=== PATIENT | male | born 1975 | race Caucasian/White ===

== ENCOUNTER 2016-05-06 16:06 | Emergency (ER) | payer OTHER ==
[2016-05-06 16:17] VITALS: BP 137/90; PULSE 96; TEMP 98.3; BMI 25.8
[2016-05-06] MEDS ORDERED: KETOROLAC TROMETHAMINE 60 MG/2 ML VIAL IM ONE (17:25)
[2016-05-06] MEDS ORDERED: diazePAM 5 MG TABLET PO ONE (17:25)
[2016-05-06] MEDS ORDERED: diazePAM 5 MG TABLET ONE (17:28)
[2016-05-06] MEDS ORDERED: KETOROLAC TROMETHAMINE 60 MG/2 ML VIAL ONE (17:28)
--- NOTE | 2016-05-06 17:31 | PDOC ---
History of Present Illness - General Chief Complaint: Back Pain Stated Complaint: BACK PAIN Time Seen by Provider: 05/06/16 16:50 History Source: Patient - History of Present Illness Occurred: reports: yesterday Severity: reports: severe Pain Location: reports: back Past History - Past Medical History Allergies/Adverse Reactions: Allergies Allergy/AdvReac Type Severity Reaction Status Date / Time No Known Allergies Allergy Verified 05/06/16 16:15 Home Medications: Ambulatory Orders Cyclobenzaprine HCl [Flexeril -] 10 mg PO TID #9 tablet 05/06/16 Ibuprofen [Motrin -] 800 mg PO Q6H #30 tablet 05/06/16 Oxycodone HCl/Acetaminophen [Percocet 5-325 mg Tablet] 1 tab PO Q4H #12 tablet MDD 4 05/06/16 Other medical history: none - Psycho/Social/Smoking Cessation Hx Anxiety: No Suicidal Ideation: No Smoking History: Never smoked Have you smoked in the past 12 months: No Information on smoking cessation initiated: No Hx Alcohol Use: No Drug/Substance Use Hx: No Substance Use Type: None Review of Systems - Review of Systems Constitutional: No: Chills, Fever Respiratory: No: Shortness of Breath Cardiac (ROS): No: Palpitations Musculoskeletal: Yes: Back Pain Neurological: No: Numbness, Tingling, Weakness *Physical Exam - Vital Signs Last Vital Signs Temp Pulse Resp BP Pulse Ox 98.3 F 96 H 18 137/90 100 05/06/16 16:15 05/06/16 16:15 05/06/16 16:15 05/06/16 16:15 05/06/16 16:15 05/06/16 17:31 Pt sitting in wheelchair and grimacing in pain - Physical Exam General Appearance: Yes: Appropriately Dressed, Severe Distress HEENT: positive: Normal Voice Neck: positive: Supple Respiratory/Chest: positive: Lungs Clear, Normal Breath Sounds. negative: Respiratory Distress Cardiovascular: positive: Regular Rate, S1, S2, Other (pulses symmetric) Gastrointestinal/Abdominal: positive: Soft. negative: Tender Integumentary: positive: Dry, Warm Neurologic: positive: Fully Oriented, Alert, Normal Mood/Affect Medical Decision Making - Medical Decision Making 05/06/16 17:25 41-year-old male, denies any significant past medical history, here with severe back pain. Patient complaining of severe right upper back pain that started gradually last night and worsened today, constant since last night, unable to describe and 10/10 in intensity. States pain now radiating to chest. States he 's had similar pain in the past but not this severe and has never seeked medical care prior to today. No trauma. Denies chest pain, shortness of breath or palpitations. No risk factors for DVT/PE. Patient has not tried anything for pain. See exam Recurrent upper back pain ?MSK, unlikely dissection, has radiation to chest but doubt PE as no RFs and PERCs out Appears uncomfortable in ED but stable w/ no reproducible pain Chest/lungs clear -pain control and reassess 05/06/16 18:56 Pain significantly improved with meds as per patient stable for discharge with pain control and PMD follow-up 05/06/16 19:03 *DC/Admit/Observation/Transfer Diagnosis at time of Disposition: Back pain Qualifiers: Back pain location: thoracic back pain Chronicity: acute Back pain laterality: right Qualified Code(s): M54.6 - Pain in thoracic spine - Discharge Dispostion Disposition: HOME Condition at time of disposition: Improved - Prescriptions Prescriptions: Cyclobenzaprine HCl [Flexeril -] 10 mg PO TID #9 tablet Ibuprofen [Motrin -] 800 mg PO Q6H #30 tablet Oxycodone HCl/Acetaminophen [Percocet 5-325 mg Tablet] 1 tab PO Q4H #12 tablet MDD 4 - Patient Instructions Printed Discharge Instructions: DI for Back Spasm Additional Instructions: [place] motrin y flexeril para el dolor y si los medicamentos no ayudan, jocelin percocet. Seguimiento con cramer PMD para duy evaluacin posterior Print Language: ZAMBIAN - Post Discharge Activity Work/School Note: Back to Work
== END 2016-05-06 19:08 | disposition home or self-care (01) ==
LOC: JERFT 16:06
PROC: 3E0233Z Introduction of Anti-inflammatory into Muscle, Percutaneous Approach (ICD-10-PCS; principal; 2016-05-06)
DX: M54.6 Pain in thoracic spine (principal)
CPT/HCPCS: 96372; 99281-25

== ENCOUNTER 2016-06-29 00:08 | Emergency (ER) | payer OTHER ==
[2016-06-29] MEDS ORDERED: LIDOCAINE 1%/EPI 1:100000 (20 ML MULTI DOSE VIAL) INF ONE (00:27)
[2016-06-29] MEDS ORDERED: LIDOCAINE 1%/EPI 1:100000 (50 ML MULTI DOSE VIAL) ONE (00:29)
[2016-06-29 00:47] VITALS: BP 134/79; PULSE 96; TEMP 97.8; BMI 25.5
--- NOTE | 2016-06-29 00:54 | PDOC ---
[id number]: No Limitations - History of Present Illness Initial Comments: 06/29/16 01:07 The patient is a 41 year old male, with no significant past medical history, who presents to the emergency department accompanied by son, with a pumping arterial bleed to the left forehead s/p falling on the staircase and hitting his head earlier this evening. The patient was actively bleeding in the left forehead upon arrival to the ED. As per son, the patient was at work when he began to consume ETOH. As the patient was arriving home and walking up the staircase, he reports falling and hitting his head. The patient denies any LOC, change in vision, dizziness, or headache. The son reports his father has a history of ETOH use. Patient's neighbors, present at bedside, report occasionally seeing the patient intoxicated. The patient denies any nausea, vomiting, diarrhea, constipation, or changes in urination patterns. The patient denies any chest pain, shortness of breath, diaphoresis, or palpitations. Allergies: None reported. Past Surgical History: None reported. Social History: ETOH abuse. Non-smoker. Denies drug use. <Gabe Santamaria - Last Filed: 06/29/16 01:11> <Ynes Jaramillo - Last Filed: 06/29/16 05:49> - General Stated Complaint: INJURY Past History <Gabe Santamaria - Last Filed: 06/29/16 01:11> - Psycho/Social/Smoking Cessation Hx Anxiety: No Suicidal Ideation: No Smoking History: Never smoked Have you smoked in the past 12 months: No Information on smoking cessation initiated: No Hx Alcohol Use: No Drug/Substance Use Hx: No Substance Use Type: None <Ynes Jaramillo - Last Filed: 06/29/16 05:49> - Past Medical History Allergies/Adverse Reactions: Allergies Allergy/AdvReac Type Severity Reaction Status Date / Time No Known Allergies Allergy Verified 05/06/16 16:15 Home Medications: Ambulatory Orders Cyclobenzaprine HCl [Flexeril -] 10 mg PO TID #9 tablet 05/06/16 Ibuprofen [Motrin -] 800 mg PO Q6H #30 tablet 05/06/16 Oxycodone HCl/Acetaminophen [Percocet 5-325 mg Tablet] 1 tab PO Q4H #12 tablet MDD 4 05/06/16 Cephalexin Monohydrate [Keflex -] 500 mg PO BID #14 capsule 06/29/16 Review of Systems - Review of Systems Able to Perform ROS?: Yes Comments:: 06/29/16 01:09 GENERAL/CONSTITUTIONAL: No fever or chills. No weakness. HEAD, EYES, EARS, NOSE AND THROAT: +Actively bleeding laceration to the left forehead, +laceration to the left cheek. No change in vision. No ear pain or discharge. No sore throat. CARDIOVASCULAR: No chest pain or shortness of breath. RESPIRATORY: No cough, wheezing, or hemoptysis. GASTROINTESTINAL: No nausea, vomiting, diarrhea or constipation. GENITOURINARY: No dysuria, frequency, or change in urination. MUSCULOSKELETAL: No joint or muscle swelling or pain. No neck or back pain. SKIN: No rash NEUROLOGIC: No headache, vertigo, loss of consciousness, or change in strength/ sensation. ENDOCRINE: No increased thirst. No abnormal weight change. HEMATOLOGIC/LYMPHATIC: No anemia, easy bleeding, or history of blood clots. ALLERGIC/IMMUNOLOGIC: No hives or skin allergy. <Gabe Santamaria - Last Filed: 06/29/16 01:11> *Physical Exam - Vital Signs Last Vital Signs Temp Pulse Resp BP Pulse Ox 97.8 F 96 H 14 134/79 97 06/29/16 00:45 06/29/16 00:45 06/29/16 00:45 06/29/16 00:45 06/29/16 00:45 - Physical Exam Comments: 06/29/16 01:09 GENERAL: Awake, alert, and fully oriented, in no acute distress HEAD: 2 cm pumping arterial bleed to the left forehead. Shallow 1 cm facial laceration to the left anterior cheek. EYES: PERRLA, EOMI, sclera anicteric, conjunctiva clear ENT: Auricles normal inspection, hearing grossly normal, nares patent, oropharynx clear without exudates. Moist mucosa NECK: Normal ROM, supple, no lymphadenopathy, JVD, or masses LUNGS: Breath sounds equal, clear to auscultation bilaterally. No wheezes, and no crackles HEART: Regular rate and rhythm, normal S1 and S2, no murmurs, rubs or gallops ABDOMEN: Soft, nontender, normoactive bowel sounds. No guarding, no rebound. No masses EXTREMITIES: Normal range of motion, no edema. No clubbing or cyanosis. No cords, erythema, or tenderness NEUROLOGICAL: Cranial nerves II through XII grossly intact. Normal speech, normal gait SKIN: Warm, Dry, normal turgor, no rashes or lesions noted. <Gabe Santamaria - Last Filed: 06/29/16 01:11> - Vital Signs Last Vital Signs Temp Pulse Resp BP Pulse Ox 97.8 F 96 H 14 134/79 97 06/29/16 00:45 06/29/16 00:45 06/29/16 00:45 06/29/16 00:45 06/29/16 00:45 <Ynes Jaramillo - Last Filed: 06/29/16 05:49> Procedures - Laceration/Wound Repair Left Head Wound Length: 2.6 to 5.0 cm Wound Explored: no foreign body present Wound's Depth, Shape: into muscle Irrigated w/ Saline: No Betadine Prep: Yes (pt was bleeding profusely from arteriole) Anesthesia: 2% Lidocaine w/ Epi Amount of Anesthetic (ccs): 3 Wound Repaired With: Sutures Suture Size/Type: 3:0 (2 nylon and one gut) Number of Sutures: 3 Layer Closure: No Left Anterior Cheek Wound Length: to 2.5 cm Wound Explored: clean Wound's Depth, Shape: into muscle Irrigated w/ Saline: Yes Betadine Prep: Yes Anesthesia: 2% Lidocaine w/ Epi Amount of Anesthetic (ccs): 1 Wound Repaired With: Sutures Suture Size/Type: 5:0 Number of Sutures: 1 Left Anterior Face Wound Length: 5.0 to 7.5 cm Wound's Depth, Shape: superficial Wound Repaired With: Sutures Suture Size/Type: 3:0 Number of Sutures: 3 <Ynes Jaramillo - Last Filed: 06/29/16 05:49> ED Treatment Course - Medications Given in the ED: ED Medications Discontinued Medications Generic Name Dose Route Start Last Admin Trade Name Freq PRN Reason Stop Dose Admin Lidocaine/Epinephrine 3 ml 06/29/16 00:27 06/29/16 00:42 Xylocaine 1%-Epi 1:100,000 INF 06/29/16 00:28 3 ml ONCE ONE Administration <Gabe Santamaria - Last Filed: 06/29/16 01:11> - Medications Given in the ED: ED Medications Discontinued Medications Generic Name Dose Route Start Last Admin Trade Name Shad PRN Reason Stop Dose Admin Lidocaine/Epinephrine 3 ml 06/29/16 00:27 06/29/16 00:42 Xylocaine 1%-Epi 1:100,000 INF 06/29/16 00:28 3 ml ONCE ONE Administration <Ynes Jaramillo - Last Filed: 06/29/16 05:49> Medical Decision Making - Medical Decision Making 06/29/16 05:45 Pt got drunkand fell on the [employer] steps outside his home. is 18 yo son rushed him to the hospital with the neighbors. Pt is bleeding profusely from an arterial bleed in the left forehead. Blood spurting out in a steady strong stream. He soaked his t shirt and he has blood on his other raquel shirt and coat. Pt has no othee medical problem. Sutures applied to control the bleed. Tetanus UTD. Pt is A+Ox3 and he has no neuro deficits, other than that he was drinking 3/4 bottle Michael over 3 hrs. Exam is otherwise normal. He has cuts to his face left cheek and other shallow cuts all over face. Pt has no other bodily injuries. He was sent home with neighbors and son once all lacerations were repaired. <Ynes Jaramillo - Last Filed: 06/29/16 05:49> *DC/Admit/Observation/Transfer - Attestations Scribe Attestion: 06/29/16 01:10 Documentation prepared by Gabe Santamaria, acting as medical billing coordinator for Ynes Jaramillo MD. <Gabe Santamaria - Last Filed: 06/29/16 01:11> - Discharge Dispostion Admit: No <Ynes Jaramillo - Last Filed: 06/29/16 05:49> Diagnosis at time of Disposition: Laceration of forehead, Laceration of face, Arterial hemorrhage, Alcohol abuse - Discharge Dispostion Disposition: HOME Condition at time of disposition: Stable - Prescriptions Prescriptions: Cephalexin Monohydrate [Keflex -] 500 mg PO BID #14 capsule - Patient Instructions Printed Discharge Instructions: How to Care for a Laceration After Repair, Alcohol Use Disorder, DI for Alcohol Abuse, How to Care for Absorbable Sutures, DI for Suture Removal Print Language: CAMBODIAN
[2016-06-29] MEDS ORDERED: CEPHALEXIN MONOHYDRATE 500 MG CAPSULE (UD) PO ONE (01:01)
[2016-06-29] MEDS ORDERED: CEPHALEXIN MONOHYDRATE 250 MG CAPSULE (FP) ONE (01:22)
[2016-06-29] MEDS ORDERED: DIPHTH,PERTUSS(ACELL),TET VAC 0.5 ML VIAL IM ONE (01:26)
== END 2016-06-29 01:39 | disposition home or self-care (01) ==
LOC: JER 00:08
PROC: 0HQ1XZZ Repair Face Skin, External Approach (ICD-10-PCS; principal; 2016-06-29)
DX: S01.81XA Laceration without foreign body of other part of head, initial encounter (principal); S01.412A Laceration without foreign body of left cheek and temporomandibular area, initial encounter; R58 Hemorrhage, not elsewhere classified; F10.10 Alcohol abuse, uncomplicated; W10.2XXA Fall (on)(from) incline, initial encounter; Y93.89 Activity, other specified; Y92.008 Other place in unspecified non-institutional (private) residence as the place of occurrence of the external cause
CPT/HCPCS: 12015; 99281-25; 99282-25

== ENCOUNTER 2019-02-25 10:23 | Emergency (ER) | payer OTHER ==
[2019-02-25 10:41] VITALS: BP 118/80; PULSE 75; TEMP 97.9; BMI 29.9
[2019-02-25] MEDS ORDERED: diphenhydrAMINE HCL 25 MG CAPSULE (FP) PO ONE ×2 (11:20→11:29)
[2019-02-25] MEDS ORDERED: DEXAMETHASONE SOD PHOSPHATE 10 MG/1 ML VIAL IM ONE (11:20)
--- NOTE | 2019-02-25 11:28 | PDOC ---
History of Present Illness - General Chief Complaint: Rash Stated Complaint: RASH Time Seen by Provider: 02/25/19 10:59 - History of Present Illness Initial Comments: 02/25/19 11:22 CHIEF COMPLAINT: rash HISTORY OF PRESENT ILLNESS: 44 yo M with recent diagnosis of HLD presents to [facility] with redness and sensation of "burning from the inside" of his skin that began 40 minutes ago. Patient reports that he took the first pill of his new cholesterol medication this morning (but does not know the name of it) and started feeling that his skin was "hot" while he was working. He denies any other symptoms including chest pain, shortness of breath, difficulty breathing, or No recent travel or sick contacts. PAST MEDICAL HISTORY: Denies past medical history FAMILY HISTORY: Denies SOCIAL HISTORY: Denies tobacco, alcohol, illicit drug use. SURGICAL HISTORY: Denies ALLERGIES: No known drug allergies REVIEW OF SYSTEMS General/Constitutional: Denies fever or chills. Denies weakness, weight change. HEENT: Denies change in vision. Denies ear pain or discharge. Denies sore throat. Cardiovascular: Denies chest pain or shortness of breath. Respiratory: Denies cough, wheezing, or hemoptysis. Gastrointestinal: Denies nausea, vomiting, diarrhea or constipation. Denies rectal bleeding. Genitourinary: Denies dysuria, frequency, or change in urination. Musculoskeletal: Denies joint or muscle swelling or pain. Denies neck or back pain. Skin: Redness, burning. Neurologic: Denies headache, vertigo, loss of consciousness, or loss of sensation. Psychiatric: Denies depression or anxiety. PHYSICAL EXAM General Appearance: Well-appearing, appropriately dressed. No apparent distress , no intoxication. HEENT: EOMI, PERRLA, normal ENT inspection, normal voice, TMs normal, pharynx normal. No conjunctival pallor. No photophobia, scleral icterus. Neck: Supple. Trachea midline. No tenderness, rigidity, carotid bruit, stridor , lymphadenopathy, or thyromegaly. Respiratory/Chest: Lungs CTAB. No shortness of breath, chest tenderness, respiratory distress, accessory muscle use. No crackles, rales, rhonchi, stridor , wheezing, dullness Cardiovascular: RRR. S1, S2. No JVD, murmur, bradycardia, tachycardia. Vascular Pulses: Dorsalis-Pedis (R): 2+, Dorsalis-Pedis (L): 2+ Gastrointestinal/Abdominal: Normal bowel sounds. Abdomen soft, non-distended. No tenderness or rebound tenderness. No organomegaly, pulsatile mass, guarding , hernia, hepatomegaly, splenomegaly. Lymphatic: No adenopathy, tenderness. Musculoskeletal/Extremities: Normal inspection. FROM of all extremities, normal capillary refill. Pelvis Stable. No CVA tenderness. No tenderness to extremities, pedal edema, swelling, erythema or deformity. Integumentary: Mild generalized erythema and warmth to skin. No macular or papular rash, no lesions. Appropriate color, dry, warm. No cyanosis, erythema , jaundice or rash Neurologic: pharmacist in charge II-XII intact. Fully oriented, alert. Appropriate mood/affect. Motor strength 5/5. No appreciable EOM palsy, facial droop or sensory deficit. Past History - Past Medical History Allergies/Adverse Reactions: Allergies Allergy/AdvReac Type Severity Reaction Status Date / Time No Known Allergies Allergy Verified 02/25/19 10:40 Home Medications: Ambulatory Orders Cyclobenzaprine HCl [Flexeril -] 10 mg PO TID #9 tablet 05/06/16 Ibuprofen [Motrin -] 800 mg PO Q6H #30 tablet 05/06/16 Oxycodone HCl/Acetaminophen [Percocet 5-325 mg Tablet] 1 tab PO Q4H #12 tablet MDD 4 05/06/16 Cephalexin Monohydrate [Keflex -] 500 mg PO BID #14 capsule 06/29/16 Diphenhydramine [Benadryl -] 50 mg PO TID #12 capsule 02/25/19 COPD: No Hypercholesterolemia: Yes - Psycho Social/Smoking Cessation Hx Smoking History: Never smoked Have you smoked in the past 12 months: No Hx Alcohol Use: Yes Drug/Substance Use Hx: No Substance Use Type: None *Physical Exam - Vital Signs Last Vital Signs Temp Pulse Resp BP Pulse Ox 97.9 F 75 14 118/80 98 02/25/19 10:35 02/25/19 10:35 02/25/19 10:35 02/25/19 10:35 02/25/19 10:35 Medical Decision Making - Medical Decision Making 02/25/19 11:25 44 yo M with recent diagnosis of HLD presents to [facility] with redness and sensation of "burning from the inside" of his skin that began 40 minutes ago. -Decadron -Benadryl Advised patient to take new medications as prescribed and discontinue to the cholesterol medication prescribed by his PCP and to follow up for change in medication. Advised patient of signs and symptoms for return to ED. Patient verbalized understanding and agrees to plan. Discharge - Discharge Information Problems reviewed: Yes Clinical Impression/Diagnosis: Adverse drug reaction Qualifiers: Encounter type: initial encounter Qualified Code(s): T50.905A - Adverse effect of unspecified drugs, medicaments and biological substances, initial encounter Condition: Stable Disposition: HOME - Admission No - Additional Discharge Information Prescriptions: Diphenhydramine [Benadryl -] 50 mg PO TID #12 capsule - Follow up/Referral Referrals: Jerome Mendez PA [Primary Care Provider] - - Patient Discharge Instructions Patient Printed Discharge Instructions: DI for Adverse Drug Reaction -- Allergic - Post Discharge Activity Work/Back to School Note: Back to Work
[2019-02-25] MEDS ORDERED: DEXAMETHASONE SOD PHOSPHATE 10 MG/1 ML VIAL ONE (11:29)
== END 2019-02-25 11:39 | disposition home or self-care (01) ==
LOC: JERFT 10:23 → JER 10:23 → JERFT 11:39
PROC: 3E0233Z Introduction of Anti-inflammatory into Muscle, Percutaneous Approach (ICD-10-PCS; principal; 2019-02-25)
DX: L27.0 Generalized skin eruption due to drugs and medicaments taken internally (principal); T46.6X5A Adverse effect of antihyperlipidemic and antiarteriosclerotic drugs, initial encounter; Y92.69 Other specified industrial and construction area as the place of occurrence of the external cause
CPT/HCPCS: 99281-25; J1100

== ENCOUNTER 2021-07-16 21:05 | Emergency (ER) | payer OTHER ==
[2021-07-16 21:11] VITALS: TEMP 98.4; BMI 30.4
[2021-07-16 21:27] VITALS: BP 140/90; PULSE 87
[2021-07-16] MEDS ORDERED: IBUPROFEN 600 MG TABLET (FP) PO ONE ×2 (22:05→22:07)
== END 2021-07-16 22:13 | disposition home or self-care (01) ==
LOC: JERFT 21:05 → JER 21:05 → JERFT 22:13
DX: K08.89 Other specified disorders of teeth and supporting structures (principal)
CPT/HCPCS: 99283-25

== ENCOUNTER 2021-11-06 03:24 | Emergency (ER) | payer OTHER ==
[2021-11-06 04:30] VITALS: BP 122/85; PULSE 96; TEMP 98.7; BMI 30.7
== END 2021-11-06 05:21 | disposition left against medical advice (07) ==
LOC: JER 03:24
DX: R10.13 Epigastric pain (principal)
CPT/HCPCS: 99281-25

== ENCOUNTER 2022-05-05 14:21 | Emergency (ER) | payer OTHER ==
[2022-05-05 14:32] VITALS: BP 127/79; RESP 18; TEMP 97; BMI 30.4
[2022-05-05 17:06] VITALS: PULSE 90
== END 2022-05-05 17:16 | disposition home or self-care (01) ==
LOC: JER 14:21 → JERFT 14:21
DX: T59.91XA Toxic effect of unspecified gases, fumes and vapors, accidental (unintentional), initial encounter (principal)
CPT/HCPCS: 82375; 99282-25

== ENCOUNTER 2023-06-06 03:29 | Emergency (ER) | payer OTHER ==
[2023-06-06 03:50] VITALS: TEMP 98.7; BMI 31.4
[2023-06-06] MEDS: LACTATED RINGERS SOLUTION 1000 ML INFUS.BAG IV ONE (05:05)
[2023-06-06] MEDS: ACETAMINOPHEN 1000 MG/100 ML BAG IVPB ONE (05:05)
[2023-06-06 05:26] LABS: BASO % 0.4 % (0-2.0); EOS % 0.8 % (0-4.5); HEMATOCRIT 41.2 % (35.4-49); HEMOGLOBIN 14.9 GM/dL (11.7-16.9); MCH 32.4 pg (25.7-33.7); MCHC 36.1 g/dl (32.0-35.9); MEAN CELL VOLUME 89.7 fl (80-96); MEAN PLT VOLUME 9.6 fl (7.5-11.1); MONO % 7.2 % (3.8-10.2); NEUT % 53.6 % (42.8-82.8); PLATELET COUNT 271 10^3/uL (134-434); RBC 4.59 M/mm3 (4.00-5.60); RDW 12.8 % (11.9-15.9); WHITE BLOOD COUNT 6.7 K/mm3 (4.0-10.0)
[2023-06-06] MEDS ORDERED: ACETAMINOPHEN INJECTION 100 ML IVPB ONE (05:36)
[2023-06-06 05:55] LABS: CHLORIDE 104 mmol/L (98-107); SODIUM 128 mmol/L (136-145)
[2023-06-06 05:57] LABS: GLUCOSE,RANDOM 144 mg/dL (74-106)
[2023-06-06 05:58] LABS: ALBUMIN 3.1 g/dl (3.4-5.0); CO2 27 mmol/L (21-32); MAGNESIUM 2.2 mg/dL (1.8-2.4)
[2023-06-06 06:01] LABS: CREATININE 0.9 mg/dL (0.55-1.3)
[2023-06-06 06:03] LABS: ALK PHOS 105 U/L (45-117)
[2023-06-06 06:29] LABS: INR 0.97 (0.83-1.09); PROTHROMBIN TIME (PATIENT) 11.2 SEC (9.7-13.0)
[2023-06-06 06:31] LABS: ACTIVATED PTT 28.6 SECONDS (25.2-36.5)
[2023-06-06 06:47] LABS: CHLORIDE 108 mmol/L (98-107); POTASSIUM 5.1 mmol/L (3.5-5.1); SODIUM 139 mmol/L (136-145)
[2023-06-06 06:49] LABS: ALBUMIN 3.6 g/dl (3.4-5.0); ANION GAP 6 mmol/L (4-13); CO2 25 mmol/L (21-32); GLUCOSE,RANDOM 146 mg/dL (74-106)
[2023-06-06 06:52] LABS: CREATININE 0.9 mg/dL (0.55-1.3)
[2023-06-06 06:54] LABS: BILIRUBIN,TOTAL 1.2 mg/dL (0.2-1)
[2023-06-06 06:58] LABS: ALK PHOS 106 U/L (45-117); BLOOD UREA NITROGEN 13.2 mg/dL (7-18); CALCIUM 7.7 mg/dL (8.5-10.1); TOT PROT 7.4 g/dl (6.4-8.2)
[2023-06-06 07:15] LABS: ANION GAP -3 mmol/L (4-13); BLOOD UREA NITROGEN 13.9 mg/dL (7-18); CALCIUM 7.6 mg/dL (8.5-10.1); POTASSIUM > 10.0 mmol/L (3.5-5.1); TOT PROT 8.2 g/dl (6.4-8.2)
[2023-06-06 08:14] LABS: CHLORIDE 107 mmol/L (98-107); POTASSIUM 4.4 mmol/L (3.5-5.1); SODIUM 140 mmol/L (136-145)
[2023-06-06 08:16] LABS: ANION GAP 7 mmol/L (4-13); CO2 25 mmol/L (21-32); GLUCOSE,RANDOM 153 mg/dL (74-106)
[2023-06-06 08:17] LABS: ALBUMIN 3.1 g/dl (3.4-5.0)
[2023-06-06 08:19] LABS: CREATININE 0.8 mg/dL (0.55-1.3)
[2023-06-06 08:30] LABS: ALK PHOS 111 U/L (45-117); BLOOD UREA NITROGEN 13.5 mg/dL (7-18); CALCIUM 7.7 mg/dL (8.5-10.1); TOT PROT 6.6 g/dl (6.4-8.2)
[2023-06-06 11:38] LABS: CHLORIDE 107 mmol/L (98-107); POTASSIUM 4.2 mmol/L (3.5-5.1); SODIUM 139 mmol/L (136-145)
[2023-06-06 11:42] LABS: ALBUMIN 3.3 g/dl (3.4-5.0); ANION GAP 7 mmol/L (4-13); CO2 26 mmol/L (21-32); GLUCOSE,RANDOM 131 mg/dL (74-106)
[2023-06-06 11:45] LABS: CREATININE 0.8 mg/dL (0.55-1.3)
[2023-06-06 11:46] LABS: BILIRUBIN,TOTAL 0.7 mg/dL (0.2-1)
[2023-06-06 11:48] LABS: ALK PHOS 100 U/L (45-117); BLOOD UREA NITROGEN 12.5 mg/dL (7-18); CALCIUM 7.9 mg/dL (8.5-10.1); TOT PROT 6.8 g/dl (6.4-8.2)
[2023-06-06 16:29] VITALS: BP 130/78; PULSE 80; RESP 16
== END 2023-06-06 16:30 | disposition home or self-care (01) ==
LOC: JER 03:29
PROC: 3E033NZ Introduction of Analgesics, Hypnotics, Sedatives into Peripheral Vein, Percutaneous Approach (ICD-10-PCS; principal; 2023-06-06)
DX: R10.11 Right upper quadrant pain (principal); K80.50 Calculus of bile duct without cholangitis or cholecystitis without obstruction
CPT/HCPCS: 36415; 76705-TC; 80053; 83690; 83735; 84478; 84484; 85025; 85610; 85730; 93005; 93010; 99285-25; J0131